=== PATIENT | female | born 1985 | race Caucasian/White ===

== ENCOUNTER 2022-12-04 23:47 | Emergency (ER) | payer SELFPAY ==
[~2022-12-04] VITALS: Ht 147.3 cm; Wt 59.0 kg
[2022-12-04 23:51] VITALS: BP 113/72
== END 2022-12-05 01:40 | disposition left against medical advice (07) ==
LOC: ER 23:47
DX: T51.0X1A Toxic effect of ethanol, accidental (unintentional), initial encounter (principal); Y92.89 Other specified places as the place of occurrence of the external cause; F10.129 Alcohol abuse with intoxication, unspecified; Y90.0 Blood alcohol level of less than 20 mg/100 ml
CPT/HCPCS: 99283; Z7610